=== PATIENT | female | born 1985 | race Two or more races ===

== ENCOUNTER 2020-05-06 17:27 | Emergency (ER) | payer BC, OTHER ==
[2020-05-06] MEDS ORDERED: ONDANSETRON ODT 4 MG TAB PO ONE (19:00)
[2020-05-06] MEDS ORDERED: IBUPROFEN 800 MG TAB PO ONE (19:15)
[2020-05-06] MEDS ORDERED: ACETAMINOPHEN 500 MG TAB PO ONE (19:15)
[2020-05-06] MEDS ORDERED: SODIUM CHLORIDE 0.9% 1,000 ML IV ONE (20:45)
[2020-05-06] MEDS ORDERED: AZITHROMYCIN 500MG/ 250ML 250 ML IV ONE (20:45)
[2020-05-06 21:42] LABS: Basophils # (auto) 0 10 ^3/uL (0-0.2); Basophils % (auto) 0.1 % (0.0-2.0); Eosinophils # (auto) 0 10 ^3/uL (0-0.8); Hematocrit 44.2 % (36.0-46.0); Hemoglobin 15.4 g/dL (12.2-16.2); Lymphocytes # (auto) 1.3 10 ^3/uL (0.4-5.4); Lymphocytes % (auto) 23.7 % (10.0-50.0); Mean Corpuscular Hemoglobin 29.4 pg (28.0-32.0); Mean Corpuscular Hgb Conc. 34.8 g/dL (32.0-36.0); Mean Corpuscular Volume 84.5 fL (80.0-100.0); Monocytes # (auto) 0.6 10 ^3/uL (0-1.3); Monocytes % (auto) 10.6 % (0.0-12.0); Neutrophils # (auto) 3.5 10 ^3/uL (1.6-8.6); Neutrophils % (auto) 65.6 % (37.0-80.0); Nucleated Red Blood Cells % 0.1 %; Platelet Count (auto) 311 10^3/uL (140-450); Red Blood Cells 5.23 10^6/uL (4.0-5.20); Red Cell Distribution Width 13.5 % (11.8-14.3); White Blood Cell 5.4 10^3/uL (4.4-10.8)
[2020-05-06 21:55] LABS: Calcium 8.2 mg/dL (8.5-10.1); Potassium 3.6 mmol/L (3.5-5.1)
[2020-05-06 22:01] LABS: Albumin 3.7 g/dL (3.4-5.0); Bilirubin, Total 0.8 mg/dL (0.2-1.0); Total Protein 7.9 g/dL (6.4-8.2)
[2020-05-06] MEDS ORDERED: PANTOPRAZOLE 40 MG TAB PO ONE (22:30)
[2020-05-07] MEDS ORDERED: cefTRIAXone SOD 1,000 MG VL IM ONE (01:45)
[2020-05-07] MEDS ORDERED: SODIUM CHLORIDE 0.9% 500 ML IV ONE (01:45)
[2020-05-07 02:54] VITALS: BP 136/76
== END 2020-05-07 03:18 | disposition home or self-care (01) ==
LOC: ER 17:27
DX: R06.02 Shortness of breath (principal); R50.9 Fever, unspecified; Z20.822 Contact with and (suspected) exposure to COVID-19
CPT/HCPCS: 36415; 71045; 80053; 85025; 87426; 96361; 96365; 96372; 99285; J0456; J0696; Q0162